=== PATIENT | female | born 1985 | race Caucasian/White ===

== ENCOUNTER 2016-08-22 14:54 | Emergency (ER) | payer OTHER ==
--- NOTE | ~2016-08-22 | CR20 ---
[facility] A Service of [facility] RADIOLOGY TEXT RESULTS PATIENT: JEANA JIM LOCATION: [facility] : 89 UNIT #: [id number] AGE: [address]: Azeem Haines MD SEX: F ORDER DR: [id number] [facility] [address] [place], [place] [address] [id number] E MR#: [id number] Acc #: [id number] NAME: JEANA JIM : 1985 SEX: F STUDY DATE/TIME: 08/22/2016 16:32 UNIT: [facility] ROOM: STUDY DESCRIPTION: CR Ankle Min 3 Views Lt Attending Physician: Azeem Haines M.D. Ordering Physician: Azeem Haines M.D. Primary Care Physician: Primary Care Physician No MEDICAL IMAGING REPORT This report is preliminary unless electronic signature is present EXAM Left ankle, 08/22/2016 INDICATION Left ankle pain after falling today. COMPARISON 06/08/2016 FINDINGS 3 views of the left ankle were obtained. There is a metal plate in the distal fibula. There is no evidence of acute injury. The joint space appears normal. IMPRESSION Prior internal fixation of the distal fibula. No change and no acute injuries. Dictated by... Tyler Mohan M.D. THIS IS AN ELECTRONICALLY VERIFIED REPORT Tyler Mohan M.D. at 08/23/2016 6:04 AM BLAINE/niki TD: 08/22/2016 23:42 JOB #: [id number] MEDICAL IMAGING REPORT COPY
[~2016-08-22 14:54] MED LIST: ACCUNEB0.21 MG/ML IH; ALBUTEROL 0.5ML INH; ALBUTEROL MININEB NEB; ALBUTEROL17 G1 IH; ALBUTEROL17 G1 PO; ALBUTEROL17 GM; ALBUTEROL17 GM INH; AMOXICILLIN PO; AMOXICILLIN500 M1 PO; AZMACORT20 GM INH; BACTRIM DS TABL1 TAB PO; BENADRYL PO; BENZONATATE PO; CERTAGEN PO; CIPRO PO; CIPRO250 MG PO; COLACE PO; DARVOCET-N 1001 TAB PO; DICLOFENAC PO; DOXYCYCLINE PO; DOXYCYCLINE150 MG PO; E-MYCIN250 MG PO; FLEXERIL PO; FLEXERIL10 M1 PO; FLEXERIL10 MG PO; FLINTSTONES M200 MCG PO; FLONASE16 GM; FLOVENT HFA12 GM INH; IBUPROFEN PO; IBUPROFEN800 MG PO; KETOPROFEN PO; LEVAQUIN PO; LORTAB 5/500 TA1 TA1 PO; LORTAB 5/500 TA1 TA2 PO; MEDROL PO; MEDROL4 MG/DOSE- PO; MOTRIN600 M1 PO; NORCO 5/325 TAB1 TAB PO; ORUDIS75 M1; ORUDIS75 M1 PO; PEN-VEE K PO; PERCOCET 51 UDTAB 5/ PO; PERCOCET5/325 PO; PHENERGAN PO; PHENERGAN25 MG; PHENERGAN25 MG PO; PREDNISONE PO; PRILOSEC PO; SYMBICORT INH; SYMBICORT80 INH; TRAMADOL HCL50 M1 PO; TYLENOL #3 PO; TYLOX 5/500 CAP1 CAP PO; VIBRAMYCIN100 M1 PO; VICODIN 5/500 T1 TAB PO; VOLTAREN50 MG PO; VOLTAREN75 MG PO; ZITHROMAX PO; ZITHROMAX1 G/PKT PO
[2016-08-22 14:59] LABS: BASOPHIL# 0.1 X10e3 (0-0.3); BASOPHIL% 0.8 % (0-2.5); EOSINOPHIL# 0.3 X10e3 (0-0.7); EOSINOPHIL% 4.3 % (0.0-7.0); HEMATOCRIT 45.6 % (35.0-45.0); HEMOGLOBIN 15.8 gm/dL (12.0-16.0); LYMPHOCYTE# 2.1 X10e3 (1.0-3.5); LYMPHOCYTE% 25.5 % (17.0-45.0); MEAN CELL VOLUME 88.3 FL (83-96); MEAN CORPUSCULAR HEMOGLOBIN 30.6 PG (28-34); MEAN CORPUSCULAR HGB CONC 34.6 g/dL (30-36); MEAN PLATELET VOLUME 8.6 FL (6.5-11.5); MONOCYTE# 0.5 X10e3 (0-1.0); NEUTROPHIL# 5.1 X10e3 (1.5-7.1); NEUTROPHIL% 63.4 % (40-75); PLATELET COUNT 238 X10e3 (140-420); RED BLOOD COUNT 5.16 X10e (3.90-5.30); RED CELL DISTRIBUTION WIDTH 14.1 % (11.0-15.5); WHITE BLOOD COUNT 8.1 X10e3 (4.0-10.5)
[2016-08-22 15:16] LABS: ALBUMIN SERUM 3.9 g/dL (3.5-5.0); ALKALINE PHOSPHATASE 65 U/L (32-92); ALT (SGPT) 50 U/L (10-40); AST (SGOT) 80 U/L (10-42); BILIRUBIN, DIRECT 0.2 mg/dL (0.0-0.2); BILIRUBIN,INDIRECT 0.9 mg/dL (0.0-0.9); BILIRUBIN,TOTAL 1.1 mg/dL (0.2-2.0); BLOOD UREA NITROGEN 7 mg/dL (9-23); CARBON DIOXIDE 30 mmol/L (22-31); CHLORIDE 100 mmol/L (100-111); CREATININE SERUM 0.5 mg/dL (0.6-1.4); DIFF IND NO; GLOM FILT RATE Estimated ABOVE60 mL/min (>60); GLUCOSE FASTING 204 mg/dL (70-110); LIPASE 11 U/L (22-51); PROTEIN TOTAL SERUM 6.9 g/dL (6.0-8.3); SODIUM 139 mmol/L (135-145)
[2016-08-22 15:19] LABS: POTASSIUM 2.9 mmol/L (3.5-5.1)
[2016-08-22 15:29] LABS: INFLUENZA A NEG (NEG); INFLUENZA B NEG (NEG)
[2016-08-22 15:38] LABS: URINE SOURCE CLEAN CATCH
[2016-08-22 15:44] LABS: URINE APPEARANCE CLOUDY; URINE BILIRUBIN NEG (NEG); URINE BLOOD TRACE (NEG); URINE COLOR DK YELLOW; URINE GLUCOSE 250 MG/DL (NEG); URINE KETONE NEG (NEG); URINE LEUKOCYTE ESTERASE 1+ (NEG); URINE NITRATE NEG (NEG); URINE PH 5.5 (5-8); URINE PROTEIN 1+ (NEG); URINE SPECIFIC GRAVITY 1.036 (1.003-1.035)
[2016-08-22 15:48] LABS: URINE BACTERIA AUWI 2+ (NEGATIVE); URINE SQUAMOUS EPITHELIAL CELL MOD /[HPF]; UWBCS1 AUWI 25-50 (0-5)
[2017-02-06] MEDS ORDERED: ALBUTEROL17 GM INH (15:15)
[2017-02-06] MEDS ORDERED: SYMBICORT INH (15:15)
[2017-02-06] MEDS ORDERED: METFORMIN HCL500 M2 PO (15:16)
[2017-02-06] MEDS ORDERED: PROZAC40 M1 PO (15:16)
== END 2016-08-22 17:40 | disposition home or self-care (01) ==
LOC: CED 14:54
PROVIDERS: Emergency Medicine
DX: E11.65 Type 2 diabetes mellitus with hyperglycemia (principal); E87.6 Hypokalemia; B34.9 Viral infection, unspecified; S93.402A Sprain of unspecified ligament of left ankle, initial encounter; X50.1XXA Overexertion from prolonged static or awkward postures, initial encounter; Y92.89 Other specified places as the place of occurrence of the external cause
CPT/HCPCS: 36415; 73610; 80048; 80076; 81003; 83690; 84703; 85025; 87804; 96360; 99284

== ENCOUNTER 2017-01-16 18:24 | Emergency (ER) | payer OTHER ==
[~2017-01-16] VITALS: Ht 154.9 cm; Wt 127.5 kg
--- NOTE | ~2017-01-16 | CR20 ---
[facility] A Service of [facility] RADIOLOGY TEXT RESULTS PATIENT: JEANA JIM LOCATION: [facility] : 89 UNIT #: [id number] AGE: [address]: MIKE JUAN APRN SEX: F ORDER DR: [id number] [facility] [address] [place], [place] [address] [id number] E MR#: [id number] Acc #: [id number] NAME: JEANA JIM : 1985 SEX: F STUDY DATE/TIME: 01/16/2017 19:36 UNIT: [facility] ROOM: STUDY DESCRIPTION: CR Ankle Min 3 Views Lt Attending Physician: Mike Juan Aprn Ordering Physician: Mike Juan Aprn Primary Care Physician: No Primary Care Physician MEDICAL IMAGING REPORT This report is preliminary unless electronic signature is present EXAM Left ankle, 3 views. HISTORY Ankle pain and swelling after twisting injury today. FINDINGS Three views of the left ankle demonstrate satisfactory bone alignment. No fracture, joint space narrowing or dislocation. Internal fixation of the distal fibula. Soft tissue swelling about the ankle. IMPRESSION No fracture. Satisfactory bone alignment. Internal fixation distal fibula. Dictated by... Ralph Land M.D. THIS IS AN ELECTRONICALLY VERIFIED REPORT Ralph Land M.D. at 01/17/2017 4:31 PM SILVANA/dior TD: 01/16/2017 20:23 JOB #: [id number] MEDICAL IMAGING REPORT Page 1 of 1 COPY
[2017-02-06] MEDS ORDERED: SYMBICORT INH (15:15)
[2017-02-06] MEDS ORDERED: ALBUTEROL17 GM INH (15:15)
[2017-02-06] MEDS ORDERED: PROZAC40 M1 PO (15:16)
[2017-02-06] MEDS ORDERED: METFORMIN HCL500 M2 PO (15:16)
== END 2017-01-16 20:25 | disposition home or self-care (01) ==
LOC: CED 18:24 → CFTX 18:24
DX: S93.402A Sprain of unspecified ligament of left ankle, initial encounter (principal); J45.909 Unspecified asthma, uncomplicated; I10 Essential (primary) hypertension; E11.9 Type 2 diabetes mellitus without complications; W06.XXXA Fall from bed, initial encounter; Y92.009 Unspecified place in unspecified non-institutional (private) residence as the place of occurrence of the external cause
CPT/HCPCS: 29540; 73610; 96372; 99283; J1885

== ENCOUNTER → 2017-01-25 | Outpatient (CLI) | payer OTHER ==
[~2017-01-25] MED LIST changes: +METFORMIN HCL500 M2 PO; +PROZAC40 M1 PO
--- NOTE | ~2017-01-25 | CR63 ---
[facility] A Service of [facility] RADIOLOGY TEXT RESULTS PATIENT: JEANA JIM LOCATION: [facility] : 87 UNIT #: [id number] AGE: [address]: Cruz Rodriguez MD SEX: F ORDER DR: [id number] [facility] [address] [place], [place] [address] [id number] O MR#: [id number] Acc #: [id number] NAME: JEANA JIM : 1985 SEX: F STUDY DATE/TIME: 01/25/2017 13:07 UNIT: [facility] ROOM: STUDY DESCRIPTION: CR Chest 2 View Attending Physician: Cruz Rodriguez M.D. Referring Physician: Cruz Rodriguez M.D. Ordering Physician: Cruz Rodriguez M.D. [facility]AG[facility] REPORT This report is preliminary unless electronic signature is present EXAM Chest, 01/25/2017; [facility]. HISTORY 31-year-old woman preop clearance for left ankle plate removal. History of asthma and diabetes. COMPARISON Chest, 06/08/2016. FINDINGS PA and lateral chest views show normal cardiac size and configuration. Hilar structures and mediastinal contours are preserved. Bilateral lungs are expanded and clear. Costophrenic angles are clear. Large body habitus noted. IMPRESSION Negative chest. Dictated by... Nicolás Hadley M.D. THIS IS AN ELECTRONICALLY VERIFIED REPORT Nicolás Hadley M.D. at 01/28/2017 8:07 AM ELVER/dior TD: 01/25/2017 21:12 JOB #: [id number] MEDICAL IMAGING REPORT Page 1 of 1 COPY
--- NOTE | ~2017-01-25 | EKG ---
PATIENT: JEANA JIM UNIT #: [id number] Ventricular Rate: 85 BPM Atrial Rate: 85 BPM P-R Interval: 154 ms QRS Duration: 96 ms Q-T Interval: 374 ms QTC Calculation(Bezet): 445 ms P Leonore: 36 degrees Calculated R Leonore: 37 degrees Calculated T Leonore: 16 degrees Diagnosis Line: Normal sinus rhythm Diagnosis Line: Normal ECG Diagnosis Line: When compared with ECG of 02-JAN-2010 23:03, Diagnosis Line: No significant change was found Diagnosis Line: Confirmed by NENITA HINOJOSA MD ([id number]) on 01/27/2017 Diagnosis Line: 2:51:42 PM INTERPRETING MD: ASHISH RUDOLPH
[2017-01-25 13:12] LABS: HEMATOCRIT 40.6 % (35.0-45.0); HEMOGLOBIN 13.9 gm/dL (12.0-16.0); MEAN CELL VOLUME 87.9 FL (83-96); MEAN CORPUSCULAR HGB CONC 34.1 g/dL (30-36); MEAN PLATELET VOLUME 8.5 FL (6.5-11.5); RED BLOOD COUNT 4.62 X10e (3.90-5.30); RED CELL DISTRIBUTION WIDTH 13.5 % (11.0-15.5); WHITE BLOOD COUNT 9.7 X10e3 (4.0-10.5)
[2017-01-25 13:21] LABS: URINE APPEARANCE TURBID; URINE BLOOD 3+ (NEG); URINE COLOR ORANGE; URINE GLUCOSE 500 MG/DL (NEG); URINE KETONE NEG (NEG); URINE LEUKOCYTE ESTERASE 2+ (NEG); URINE NITRATE NEG (NEG); URINE PROTEIN 2+ (NEG); URINE SPECIFIC GRAVITY 1.036 (1.003-1.035)
[2017-01-25 13:26] LABS: CULTURE INDICATED? YES; URBCS1 AUWI INNUM /[HPF] (0-2); URINE BACTERIA AUWI NEG (NEGATIVE); URINE SQUAMOUS EPITHELIAL CELL FEW /[HPF]; UWBCS1 AUWI 50-100 (0-5)
[2017-01-25 13:38] LABS: BUN/CREATININE RATIO 27.5; CALCIUM SERUM 8.9 mg/dL (8.4-10.2); CREATININE SERUM 0.4 mg/dL (0.6-1.4); GLOM FILT RATE Estimated 140.8 mL/min (>60); POTASSIUM 3.2 mmol/L (3.5-5.1)
[2017-01-25 13:41] LABS: URINE BILIRUBIN NEG (NEG)
== END | disposition home or self-care (01) ==
LOC: CLAB 12:18
PROVIDERS: Orthopaedic Surgery
DX: Z01.818 Encounter for other preprocedural examination (principal); S82.892D Other fracture of left lower leg, subsequent encounter for closed fracture with routine healing; E11.9 Type 2 diabetes mellitus without complications; J45.909 Unspecified asthma, uncomplicated
CPT/HCPCS: 36415; 71020; 80048; 81003; 85027; 87086; 93005

== ENCOUNTER → 2017-02-11 | Day surgery (SDC) | payer OTHER ==
--- NOTE | ~2017-02-11 | OR ---
Unit #: [id number] #: [id number] Patient: JEANA JIM [id number] [address] [place], [place] [address] [id number] O MR#: [id number] NAME: JEANA JIM ROOM: Date of Procedure: 02/11/2017 Admission Date: 02/11/2017 Surgeon: Cruz Rodriguez M.D. : 1985 Attending Physician: Cruz Rodriguez M.D. Primary Care Physician: [facility] OPERATIVE REPORT PREOPERATIVE DIAGNOSIS Retained hardware, left ankle. POSTOPERATIVE DIAGNOSIS Retained hardware, left ankle. PROCEDURE PERFORMED Removal of plate and screws, lateral fibula left ankle. BINDU Hand. ANESTHESIA General with local. DESCRIPTION OF PROCEDURE The patient was brought to the operating room, given a general anesthetic. Appropriate IV antibiotics had been administered. Tourniquet was placed around the left thigh. The left leg was prepped and draped. Tourniquet was inflated to 300. We then opened the previous lateral skin incision. The subcutaneous dissected away and the plate was identified. The screws and plates were removed. The wound was irrigated and closed with 0 and 2-0 Vicryl and avinash in the skin. Soft compression dressing was applied and the general anesthetic reversed. We did inject the area with 0.5% plain Marcaine prior to closure. chiropractor assistant, Andreia Hand, was present throughout the entire case. Dictated by... Noe Krause/leslie TD: 02/11/2017 15:24 JOB #: [id number] Unit #: [id number] #: [id number] Patient: JEANA JIM OPERATIVE REPORT Page 1 of 1 X Cruz Rodriguez MD PROCEDURE OPERATIVE NOTE
== END | disposition home or self-care (01) ==
LOC: CSUR 08:19
DX: T84.84XA Pain due to internal orthopedic prosthetic devices, implants and grafts, initial encounter (principal); J45.909 Unspecified asthma, uncomplicated; E11.9 Type 2 diabetes mellitus without complications; E66.9 Obesity, unspecified; Z79.84 Long term (current) use of oral hypoglycemic drugs; Z79.51 Long term (current) use of inhaled steroids; Z79.899 Other long term (current) drug therapy
CPT/HCPCS: 82947; 84132; 84703; J0690; J1100; J1170; J1885; J2250; J2405; J3010